=== PATIENT | male | born 1945 | race Caucasian/White ===

== ENCOUNTER 2016-08-27 18:19 | Emergency (ER) | payer MEDICARE ==
[2016-08-27] MEDS ORDERED: TETANUS/DIPHTHERIA/PERTUSSIS 0.5 ML SYRINGE IM ONE ×2 (19:37→19:52)
[2016-08-27] MEDS ORDERED: DOXYCYCLINE 100 MG TABLET PO STA (19:45)
[2016-08-27] MEDS ORDERED: DOXYCYCLINE 100 MG TABLET PO ONE (19:50)
== END 2016-08-27 20:59 | disposition home or self-care (01) ==
DX: S81.011A Laceration without foreign body, right knee, initial encounter (principal); W01.0XXA Fall on same level from slipping, tripping and stumbling without subsequent striking against object, initial encounter; Y92.019 Unspecified place in single-family (private) house as the place of occurrence of the external cause; Z23 Encounter for immunization; I10 Essential (primary) hypertension; K21.9 Gastro-esophageal reflux disease without esophagitis; Z86.711 Personal history of pulmonary embolism
CPT/HCPCS: 12002; 73564; 99283; A9270